=== PATIENT | male | born 1975 | race Caucasian/White ===

== ENCOUNTER 2016-12-11 03:58 | Emergency (ER) | payer BC ==
[2016-12-11 04:10] VITALS: BP 167/91
--- NOTE | 2016-12-11 04:13 | EDM.PDOC ---
ED HPI GENERAL MEDICAL PROBLEM - General Chief Complaint: Lower Extremity Injury/Pain Stated Complaint: PAIN IN RIGHT FOOT Time Seen by Provider: 12/11/16 04:03 - History of Present Illness INITIAL COMMENTS - FREE TEXT/NARRATIVE: HISTORY AND PHYSICAL: History of present illness: Patient's a 41-year-old male presents with a concern of intermittent right foot pain he states he had an injury to his foot and subsequently has had episodes in which it feels numb and painful this then is reduced with movement and a seeming pop. He's had no fever no chills no nausea no vomiting no other complaints. Review of systems: As per history of present illness and below otherwise all systems reviewed and negative. Past medical history: As per history of present illness and as reviewed below otherwise noncontributory. Surgical history: As per history of present illness and as reviewed below otherwise noncontributory. Social history: No reported history of drug or alcohol abuse. Family history: As per history of present illness and as reviewed below otherwise noncontributory. Physical exam: HEENT: Atraumatic, normocephalic, pupils reactive, negative for conjunctival pallor or scleral icterus, mucous membranes moist, throat clear, neck supple, nontender, trachea midline. Lungs: Clear to auscultation, breath sounds equal bilaterally, chest nontender. Heart: S1S2, regular, negative for clicks, rubs, or JVD. Abdomen: Soft, nondistended, nontender. Negative for masses or hepatosplenomegaly. Negative for costovertebral tenderness. Pelvis: Stable nontender. Genitourinary: Deferred. Rectal: Deferred. Extremities: Atraumatic, negative for cords or calf pain. Neurovascular unremarkable. Foot has bounding dorsal pedal and posterior tibialis pulses CMS in neurovascular G is unremarkable Neuro: Awake, alert, oriented. Cranial nerves II through XII unremarkable. Cerebellum unremarkable. Motor and sensory unremarkable throughout. Exam nonfocal. Diagnostics: X-ray right foot Therapeutics: Crutches when necessary Impression: #1 intermittent right foot pain Definitive disposition and diagnosis as appropriate pending reevaluation and review of above. rightfoot Pain Score (Numeric/FACES): 4 - Related Data Allergies Allergy/AdvReac Type Severity Reaction Status Date / Time No Known Allergies Allergy Verified 12/11/16 04:02 Home Meds: Home Meds . [No Known Home Meds] 05/05/16 [History] Past Medical History - Past Health History Medical/Surgical History: Denies Medical/Surgical History Social & Family History - Tobacco Use Smoking Status *Q: Current Every Day Smoker Years of Tobacco use: 20 Packs/Tins Daily: 2 Second Hand Smoke Exposure: No - Caffeine Use Caffeine Use: Reports: Coffee, Energy Drinks - Recreational Drug Use Recreational Drug Use: No Review of Systems - Review of Systems Review Of Systems: ROS reveals no pertinent complaints other than HPI. ED EXAM, GENERAL - Physical Exam Exam: See Below (See dictation) Course - Vital Signs Last Recorded V/S: Last Vital Signs Temp 36.2 C 12/11/16 04:02 Pulse 84 12/11/16 04:02 Resp 18 12/11/16 04:02 BP 167/91 H 12/11/16 04:02 Pulse Ox 97 12/11/16 04:02 - Orders/Labs/Meds Orders: Active Orders 24 hr Category Date Time Status Foot 2V Rt [CR] Stat Exams 12/11/16 04:04 Ordered Departure - Departure Time of Disposition: 04:11 Disposition: Home, Self-Care 01 Condition: Good Clinical Impression: Foot injury - Discharge Information Referrals: PCP,None [Primary Care Provider] - Additional Instructions: The following information is given to patients seen in the emergency department who are being discharged to home. This information is to outline your options for follow-up care. We provide all patients seen in our emergency department with a follow-up referral. The need for follow-up, as well as the timing and circumstances, are variable depending upon the specifics of your emergency department visit. If you don't have a primary care physician on staff, we will provide you with a referral. We always advise you to contact your personal physician following an emergency department visit to inform them of the circumstance of the visit and for follow-up with them and/or the need for any referrals to a consulting specialist. The emergency department will also refer you to a specialist when appropriate. This referral assures that you have the opportunity for followup care with a specialist. All of these measure are taken in an effort to provide you with optimal care, which includes your followup. Under all circumstances we always encourage you to contact your private physician who remains a resource for coordinating your care. When calling for followup care, please make the office aware that this follow-up is from your recent emergency room visit. If for any reason you are refused follow-up, please contact the [facility] emergency department at and asked to speak to the emergency department charge nurse. BRET [facility] [address], [address] [place] [address] Crutches when necessary follow-up orthopedic surgery Motrin/Tylenol as directed return as needed as discussed - My Orders Last 24 Hours: My Active Orders 12/11/16 04:04 Foot 2V Rt [CR] Stat - Assessment/Plan Last 24 Hours: My Active Orders 12/11/16 04:04 Foot 2V Rt [CR] Stat
--- NOTE | 2016-12-11 16:12 | CR ---
EXAM DATE: 12/11/16 PATIENT'S AGE: 41 Patient: PAUL ABBOTT Facility: [place], [place] Site . Site : [id number] Study: XRay Extremity Right FOOT [id number]/6/2017 4:19:21 AM Ordering Physician: Doctor Montez Final Report: Indication: Right foot pain Technique: Two views right foot Comparison: None Findings/impression: The tip of the right 5th toe is obscured by the 4th toe. If there is focal pain in this region, dedicated toe images are recommended. Remainder of the osseous structures demonstrate no acute abnormality. There is a small posterior calcaneal enthesophyte. Joint spaces and soft tissues are normal. Dictated by Jane Canales MD @ Dec 11 2016 5:01AM (Electronic Signature) Report Signed by Proxy. ANTHONY
== END 2016-12-11 04:48 | disposition home or self-care (01) ==
LOC: MW.ED 03:58
DX: S99.921A Unspecified injury of right foot, initial encounter (principal); F17.210 Nicotine dependence, cigarettes, uncomplicated; X50.9XXA Other and unspecified overexertion or strenuous movements or postures, initial encounter
CPT/HCPCS: 73620-26-RT; 73620-RT; 99282; 99283

== ENCOUNTER 2022-12-06 07:31 | Day surgery (SDC) | payer BC ==
[~2022-12-06 07:31] MED LIST: Lactated Ringers 1,000 ML IV SCH; propofoL 50 ML ONE
[2022-12-06 09:58] VITALS: PULSE 66
[2022-12-06 09:59] VITALS: BP 133/92
== END 2022-12-06 09:32 | disposition home or self-care (01) ==
LOC: MW.SDS 07:31
PROVIDERS: ATTEND Surgery
DX: D12.6 Benign neoplasm of colon, unspecified (principal); K63.5 Polyp of colon; I10 Essential (primary) hypertension; F17.210 Nicotine dependence, cigarettes, uncomplicated; Z79.899 Other long term (current) drug therapy; Z86.16 Personal history of COVID-19
CPT/HCPCS: 45380; 45385; J2704; J7120; 00811

== ENCOUNTER 2023-06-24 07:18 | Emergency (ER) | payer BC ==
[2023-06-24 07:46] VITALS: BP 157/99; PULSE 85
== END 2023-06-24 08:24 | disposition home or self-care (01) ==
LOC: MW.ED 07:18
DX: S67.192A Crushing injury of right middle finger, initial encounter (principal); I10 Essential (primary) hypertension; Z75.8 Other problems related to medical facilities and other health care; W22.8XXA Striking against or struck by other objects, initial encounter; Y93.89 Activity, other specified
CPT/HCPCS: 73130-26-RT; 73130-RT; 99283